=== PATIENT | female | born 1950 | race Caucasian/White ===

== ENCOUNTER 2022-05-18 10:01 | Outpatient (CLI) | payer MEDICARE, OTHER, SELFPAY | END 2022-05-18 10:02 | disposition home or self-care (01) | LOC: FRMREF 10:03 | PROVIDERS: PCP Physician Assistant Medical; Visit Provider Physician Assistant Medical | DX: E11.65 Type 2 diabetes mellitus with hyperglycemia (principal); I10 Essential (primary) hypertension; N39.0 Urinary tract infection, site not specified; N89.8 Other specified noninflammatory disorders of vagina | CPT/HCPCS: 87086; 87186 ==

== ENCOUNTER 2022-08-05 16:32 | Outpatient (CLI) | payer MEDICARE, OTHER, SELFPAY | END 2022-08-05 16:33 | disposition home or self-care (01) | LOC: LKVREF 08-10 11:05 | PROVIDERS: PCP Physician Assistant Medical; Visit Provider Nurse Practitioner Family | DX: R39.9 Unspecified symptoms and signs involving the genitourinary system (principal); N39.0 Urinary tract infection, site not specified | CPT/HCPCS: 87086; 87186 ==

== ENCOUNTER 2022-09-07 08:58 | Outpatient (CLI) | payer MEDICARE, OTHER, SELFPAY ==
[2022-09-07 13:43] LABS: Chloride* 101 mmol/L (96-114)
[2022-09-07 13:44] LABS: Albumin* 3.7 g/dL (3.3-5.0); Sodium* 134 mmol/L (135-149)
[2022-09-07 13:47] LABS: Alanine Aminotransferase* 32 U/L (4-35); Alkaline Phosphatase* 209 U/L (40-150); Aspartate Amino Transferase* 26 U/L (12-35); Bilirubin Total* 0.3 mg/dL (0.1-1.5); Blood Urea Nitrogen* 23 mg/dL (7-30); Carbon Dioxide* 25 mmol/L (20-32); Cholesterol* 182 mg/dL (90-199); Creatinine* 0.9 mg/dL (0.5-1.5); Estimated Glomerular Filt Rate 69 ml/min; Total Protein* 6.5 g/dL (6.0-8.3); Triglycerides* 382 mg/dL (40-149)
[2022-09-07 13:48] LABS: Calcium* 9.7 mg/dL (8.4-10.6); HDL Cholesterol* 38 mg/dL (>=50); LDL Cholesterol Calculated 68 mg/dL (<100)
[2022-09-07 13:58] LABS: Glucose* 373 mg/dL (60-115)
[2022-09-07 14:37] LABS: Creatinine Urine 157.2 mg/dL
[2022-09-07 14:41] LABS: Microalbumin Creatinine Ratio 0 mg/g (0-30); Microalbumin Urine < 1 mg/dL
== END 2022-09-07 08:59 | disposition home or self-care (01) ==
PROVIDERS: PCP Physician Assistant Medical; Visit Provider Physician Assistant Medical
DX: E11.65 Type 2 diabetes mellitus with hyperglycemia (principal); E78.5 Hyperlipidemia, unspecified; I10 Essential (primary) hypertension; Z79.4 Long term (current) use of insulin
CPT/HCPCS: 80053; 80061; 82043; 82570; 84443

== ENCOUNTER 2022-09-23 09:29 | Outpatient (CLI) | payer MEDICARE, OTHER, SELFPAY ==
--- NOTE | 2022-09-23 09:37 | CRLHL7_ITS ---
For Patients: As a result of the Century Cures Act, medical imaging exams and procedure reports are released immediately into your electronic medical record. You may view this report before your referring provider. If you have questions, please contact your health care provider. BILATERAL DIGITAL SCREENING MAMMOGRAM WITH COMPUTER-AIDED DETECTION CLINICAL HISTORY: Routine screening exam. COMPARISON: 08/24/2017, 05/05/2011 TECHNIQUE: Digital mammogram in CC and MLO projections including computer-aided detection (CAD). BREAST COMPOSITION: There are scattered areas of fibroglandular density. FINDINGS: RIGHT Breast: No suspicious findings LEFT Breast: Focal asymmetric density within the lower outer quadrant 6 cm from the nipple. IMPRESSION: LEFT breast asymmetry/mass. RECOMMENDATIONS: Additional mammographic views of the LEFT breast including 3D spot-compression CC/MLO. LEFT breast ultrasound may also be required. BI-RADS Category 0: Incomplete: Need Additional Imaging Evaluation and/or Prior Mammograms for Comparison. The [facility] will contact the patient for follow-up. A lay language report of this examination will be provided to the patient. Dictated by Hilton Gomran MD @ 09/23/2022 12:31:02 PM PT/Dictated by: Hilton Gorman MD @ 09/23/2022 12:31:00 PM (Electronically Signed)
== END 2022-09-23 09:30 | disposition home or self-care (01) ==
LOC: MAMMO 09:31
PROVIDERS: PCP Physician Assistant Medical; Visit Provider Physician Assistant Medical
DX: Z12.31 Encounter for screening mammogram for malignant neoplasm of breast (principal); N63.20 Unspecified lump in the left breast, unspecified quadrant
CPT/HCPCS: 77067

== ENCOUNTER 2022-09-30 10:23 | Outpatient (CLI) | payer MEDICARE, OTHER, SELFPAY ==
--- NOTE | 2022-09-30 10:45 | CRLHL7_ITS ---
For Patients: As a result of the Cures Act, medical imaging exams and procedure reports are released immediately into your electronic medical record. You may view this report before your referring provider. If you have questions, please contact your health care provider. DIGITAL DIAGNOSTIC LEFT MAMMOGRAM USING TOMOSYNTHESIS AND COMPUTER-AIDED DETECTION LEFT BREAST ULTRASOUND CLINICAL HISTORY: LEFT breast mass/asymmetry. COMPARISON: 09/23/22. TECHNIQUE: Digital LEFT mammogram in two projections. Tomosynthesis and CAD utilized. Real-time ultrasound imaging of LEFT breast with imaging documentation. BREAST COMPOSITION: There are areas of scattered fibroglandular density. FINDINGS: 3D spot compression CC/MLO LEFT mammograms submitted. Decreased conspicuity of the previously noted asymmetry. No suspicious masses or architectural distortion. Targeted LEFT breast ultrasound performed in the lower outer quadrant 6 cm from the nipple. No suspicious masses or fluid collections noted. No evidence of malignancy. IMPRESSION: No evidence of malignancy. RECOMMENDATIONS: Routine screening mammography. Results and recommendations discussed with the patient. BI-RADS Category 2: Benign A lay language report of this examination will be provided to the patient. Dictated by Hilton Gorman MD @ 09/30/2022 11:38:43 AM jj/Dictated by: Hilotn Gorman MD @ 09/30/2022 11:38:00 AM (Electronically Signed)
--- NOTE | 2022-09-30 11:15 | CRLHL7_ITS ---
For Patients: As a result of the Cures Act, medical imaging exams and procedure reports are released immediately into your electronic medical record. You may view this report before your referring provider. If you have questions, please contact your health care provider. PLEASE SEE DIGITAL DIAGNOSTIC LEFT MAMMOGRAM PERFORMED SAME DAY CRL:[email or web address] [email or web address]/Dictated by: Hilton Gorman MD @ 09/30/2022 11:38:00 AM (Electronically Signed)
== END 2022-09-30 10:24 | disposition home or self-care (01) ==
LOC: MAMMO 10:24
PROVIDERS: PCP Physician Assistant Medical; Visit Provider Physician Assistant Medical
DX: N63.20 Unspecified lump in the left breast, unspecified quadrant (principal); R92.8 Other abnormal and inconclusive findings on diagnostic imaging of breast
CPT/HCPCS: 76642; 77065; G0279

== ENCOUNTER 2022-11-01 14:02 | Outpatient (CLI) | payer MEDICARE, OTHER, SELFPAY | END 2022-11-01 14:03 | disposition home or self-care (01) | LOC: FRMREF 14:03 | PROVIDERS: PCP Physician Assistant Medical; Visit Provider Dermatology | DX: G62.9 Polyneuropathy, unspecified (principal); R25.2 Cramp and spasm; R32 Unspecified urinary incontinence; E11.9 Type 2 diabetes mellitus without complications; Z79.631 Long term (current) use of antimetabolite agent; G89.4 Chronic pain syndrome | CPT/HCPCS: 80053 ==

== ENCOUNTER 2022-12-15 10:54 | Outpatient (CLI) | payer MEDICARE, OTHER, SELFPAY | END 2022-12-15 10:55 | disposition home or self-care (01) | PROVIDERS: PCP Physician Assistant Medical; Visit Provider Emergency Medicine | DX: E78.5 Hyperlipidemia, unspecified (principal); R30.0 Dysuria; E11.9 Type 2 diabetes mellitus without complications; E78.1 Pure hyperglyceridemia; I10 Essential (primary) hypertension | CPT/HCPCS: 80048; 80061; 80076; 82043; 82570; 87086; 87186 ==

== ENCOUNTER 2022-12-22 15:11 | Outpatient (CLI) | payer MEDICARE, OTHER, SELFPAY | END 2022-12-22 15:12 | disposition home or self-care (01) | LOC: LKVREF 15:12 | PROVIDERS: PCP Physician Assistant Medical; Visit Provider Emergency Medicine | DX: M79.10 Myalgia, unspecified site (principal) | CPT/HCPCS: 82550 ==

== ENCOUNTER 2023-04-04 15:33 | Outpatient (CLI) | payer MEDICARE, OTHER, SELFPAY | END 2023-04-04 15:34 | disposition home or self-care (01) | PROVIDERS: PCP Physician Assistant Medical; Visit Provider Emergency Medicine | DX: Z00.00 Encounter for general adult medical examination without abnormal findings (principal); I10 Essential (primary) hypertension; R30.0 Dysuria; E11.9 Type 2 diabetes mellitus without complications; E78.5 Hyperlipidemia, unspecified; M85.9 Disorder of bone density and structure, unspecified; R25.2 Cramp and spasm | CPT/HCPCS: 80053; 82043; 82570; 87086 ==

== ENCOUNTER 2023-04-05 09:35 | Outpatient (CLI) | payer MEDICARE, OTHER, SELFPAY | END 2023-04-05 09:36 | disposition home or self-care (01) | LOC: NFLDREF 04-06 08:24 | PROVIDERS: PCP Emergency Medicine; Referring Provider Physician Assistant Medical; Visit Provider Emergency Medicine | DX: E78.5 Hyperlipidemia, unspecified (principal) | CPT/HCPCS: 80061 ==

== ENCOUNTER 2023-04-18 14:43 | Outpatient (CLI) | payer MEDICARE, OTHER, SELFPAY | END 2023-04-18 14:44 | disposition home or self-care (01) | PROVIDERS: PCP Emergency Medicine; Visit Provider Emergency Medicine | DX: R74.8 Abnormal levels of other serum enzymes (principal); E78.5 Hyperlipidemia, unspecified; E11.9 Type 2 diabetes mellitus without complications | CPT/HCPCS: 82977; 84075 ==

== ENCOUNTER 2023-05-11 13:04 | Outpatient (CLI) | payer MEDICARE, OTHER, SELFPAY ==
--- NOTE | 2023-05-11 14:00 | CRLHL7_ITS ---
For Patients: As a result of the Century Cures Act, medical imaging exams and procedure reports are released immediately into your electronic medical record. You may view this report before your referring provider. If you have questions, please contact your health care provider. DXA BONE MINERAL DENSITY STUDY Current height (in): 65. Weight (lb): 224. Menopause age: 44. Ethnicity: White. 1. Have you had a previous hip or vertebral fracture? No. 2. Have you had any fractures during your adult life which did not result from significant trauma (e.g., auto accident)? No. 3. Did either of your parents have a hip fracture? Yes. 4. Do you smoke? No. 5. Have you ever taken Glucocorticoids? No. 6. Do you have rheumatoid arthritis? No. 7. Do you have secondary osteoporosis? No. 8. Do you drink 3 or more alcoholic drinks per day? No. 9. Are you being treated for osteoporosis? No. 10. Have you ever taken any of the following medications: Actonel, Evista, Fosamax, Miacalcin, Reclast, Boniva, Forteo, HRT (i.e. estrogen/hormone therapy), Protelos, Prolia, Vitamin D, Calcium, other ??? please specify. ANSWER: Yes, Vitamin D, Calcium. 11. Do you have any of the following medical conditions: Anorexia or bulimia, asthma or emphysema, end stage renal disease, hyperparathyroidism, any seizure disorders, cancer, inflammatory bowel diseases, hysterectomy, other ??? please specify. ANSWER: Yes, Inflammatory bowel diseases, Hysterectomy. 12. What was your maximum height (inches)? 66. 13. Do you perform weight bearing exercise regularly? No. 14. Do you regularly consume dairy products? Yes. 15. Do you drink caffeinated beverages? Yes. If female: 16. At what age did your period start? 14. 17. Are you premenopausal? No. 18. How many full term pregnancies have you had? 3. 19. Have you ever missed your period for more than 6 months in a row (not including or menopause)? No. TECHNIQUE: Bone mineral density study was performed using the [employer]. FINDINGS: The results of the study expressed as bone mineral density (BMD) are as follows: Lumbar spine L1 to L2: BMD: 1.263 g/cm2. T-score: 2.6. Z-score: 4.6. Neck Left: BMD: 0.641 g/cm2. T-score: -1.9 . Z-score: -0.0. Right: BMD: 0.645 g/cm2. T-score: -1.8 . Z-score: 0.0. Total Left: BMD: 0.872 g/cm2. T-score: -0.6 . Z-score: 1.0. Right: BMD: 0.816 g/cm2. T-score: -1.0 . Z-score: 0.5. IMPRESSION: Osteopenia. *Comparison exams done prior to 01/2020 were performed on different unit, [employer]. COMPARISON: Compared with scan of 09/23/2020, the bone mineral density has increased by 8.3 percent at the spine and increased by 5.9 percent at the hip. Hilton Gorman M.D. Diagnostic Radiologist [email or web address] FABRICE/[email or web address] JR/Dictated by: Hilton Gorman MD @ 05/12/2023 11:26:00 AM (Electronically Signed)
== END 2023-05-11 13:05 | disposition home or self-care (01) ==
LOC: RAD 13:06
PROVIDERS: PCP Emergency Medicine; Visit Provider Emergency Medicine
DX: M85.9 Disorder of bone density and structure, unspecified (principal); M85.88 Other specified disorders of bone density and structure, other site
CPT/HCPCS: 77080

== ENCOUNTER 2023-06-12 13:12 | Outpatient (CLI) | payer MEDICARE, OTHER, SELFPAY | END 2023-06-12 13:13 | disposition home or self-care (01) | LOC: NFLDREF 06-15 15:03 | PROVIDERS: PCP Emergency Medicine; Referring Provider Emergency Medicine; Visit Provider Family Medicine | DX: R39.89 Other symptoms and signs involving the genitourinary system (principal); J98.01 Acute bronchospasm | CPT/HCPCS: 87086; 87186 ==

== ENCOUNTER 2023-08-10 10:39 | Outpatient (CLI) | payer MEDICARE, OTHER, SELFPAY | END 2023-08-10 10:40 | disposition home or self-care (01) | LOC: NFLDREF 08-11 08:34 | PROVIDERS: PCP Emergency Medicine; Referring Provider Emergency Medicine; Visit Provider Emergency Medicine | DX: E78.5 Hyperlipidemia, unspecified (principal); E11.9 Type 2 diabetes mellitus without complications; E78.1 Pure hyperglyceridemia | CPT/HCPCS: 80061 ==

== ENCOUNTER 2023-09-19 13:54 | Outpatient (CLI) | payer MEDICARE, OTHER, SELFPAY | END 2023-09-19 13:55 | disposition home or self-care (01) | PROVIDERS: PCP Emergency Medicine; Visit Provider Emergency Medicine | DX: E11.9 Type 2 diabetes mellitus without complications (principal); I10 Essential (primary) hypertension; M85.80 Other specified disorders of bone density and structure, unspecified site | CPT/HCPCS: 80048; 82306 ==

== ENCOUNTER 2024-06-12 10:05 | Outpatient (CLI) | payer MEDICARE, OTHER, SELFPAY | END 2024-06-12 10:06 | disposition home or self-care (01) | LOC: LKVREF 10:06 | PROVIDERS: PCP Emergency Medicine; Visit Provider Emergency Medicine | DX: E78.5 Hyperlipidemia, unspecified (principal); E11.65 Type 2 diabetes mellitus with hyperglycemia; Z79.4 Long term (current) use of insulin | CPT/HCPCS: 82043; 82570 ==

== ENCOUNTER 2024-08-08 13:23 | Outpatient (CLI) | payer MEDICARE, OTHER, SELFPAY | END 2024-08-08 13:24 | disposition home or self-care (01) | PROVIDERS: PCP Emergency Medicine; Visit Provider Emergency Medicine | DX: E78.5 Hyperlipidemia, unspecified (principal); I10 Essential (primary) hypertension; M85.80 Other specified disorders of bone density and structure, unspecified site; G62.9 Polyneuropathy, unspecified | CPT/HCPCS: 80048; 80061; 82306; 82607 ==

== ENCOUNTER 2024-09-09 10:56 | Outpatient (CLI) | payer MEDICARE, OTHER, SELFPAY | END 2024-09-09 10:57 | disposition home or self-care (01) | LOC: NFLDREF 09-11 02:03 | PROVIDERS: PCP Emergency Medicine; Referring Provider Emergency Medicine; Visit Provider Physician Assistant | DX: N89.8 Other specified noninflammatory disorders of vagina (principal); N76.4 Abscess of vulva | CPT/HCPCS: 87086 ==

== ENCOUNTER 2024-11-06 08:58 | Outpatient (CLI) | payer MEDICARE, OTHER, SELFPAY ==
--- NOTE | 2024-11-06 09:45 | CRLHL7_ITS ---
For Patients: As a result of the Century Cures Act, medical imaging exams and procedure reports are released immediately into your electronic medical record. You may view this report before your referring provider. If you have questions, please contact your health care provider. BILATERAL SCREENING MAMMOGRAM WITH COMPUTER-AIDED DETECTION AND TOMOSYNTHESIS TECHNIQUE: CC and MLO views were obtained. These mammographic images have been obtained using full-field digital technique. These mammographic images were interpreted with the benefit of computer-aided detection. Breast Tomosynthesis was used in this interpretation. COMPARISON FILM: 09/30/22, 09/23/22, 08/24/17. FINDINGS: There are scattered areas of fibroglandular density. IMPRESSION: There is no radiographic evidence for malignancy. ASSESSMENT: BI-RADS Category 1: Negative RECOMMENDATION: Routine screening mammogram in 1 year. A lay language report of this examination will be provided to the patient. Hilton Gorman M.D. Diagnostic Radiologist [email or web address] SP/Dictated by: Hilton Gorman MD @ 11/06/2024 9:55:00 AM (Electronically Signed)
== END 2024-11-06 08:59 | disposition home or self-care (01) ==
LOC: MAMMO 08:59
PROVIDERS: PCP Emergency Medicine; Visit Provider Emergency Medicine
DX: Z12.31 Encounter for screening mammogram for malignant neoplasm of breast (principal)
CPT/HCPCS: 77063; 77067

== ENCOUNTER 2024-12-24 10:55 | Outpatient (CLI) | payer MEDICARE, OTHER, SELFPAY | END 2024-12-24 10:56 | disposition home or self-care (01) | LOC: NFLDREF 12-29 06:48 | PROVIDERS: PCP Emergency Medicine; Referring Provider Emergency Medicine; Visit Provider Emergency Medicine | DX: E78.5 Hyperlipidemia, unspecified (principal) | CPT/HCPCS: 80061 ==

== ENCOUNTER 2025-05-13 14:25 | Outpatient (CLI) | payer MEDICARE, OTHER, SELFPAY | END 2025-05-13 14:26 | disposition home or self-care (01) | LOC: NFLDREF 05-19 02:10 | PROVIDERS: PCP Physician Assistant Medical; Referring Provider Physician Assistant Medical | DX: N30.01 Acute cystitis with hematuria (principal) | CPT/HCPCS: 87086 ==

== ENCOUNTER 2025-06-18 10:56 | Outpatient (CLI) | payer MEDICARE, OTHER, SELFPAY | END 2025-06-18 10:57 | disposition home or self-care (01) | PROVIDERS: PCP Physician Assistant Medical; Visit Provider Physician Assistant Medical | DX: E11.65 Type 2 diabetes mellitus with hyperglycemia (principal); E78.5 Hyperlipidemia, unspecified; R68.89 Other general symptoms and signs; Z79.4 Long term (current) use of insulin | CPT/HCPCS: 80053; 80061; 82043; 82570; 82607; 84443; 87086 ==

== ENCOUNTER 2025-07-18 13:53 | Outpatient (CLI) | payer MEDICARE, OTHER, SELFPAY | END 2025-07-18 13:54 | disposition home or self-care (01) | LOC: WOUND 13:58 | PROVIDERS: PCP Physician Assistant Medical; Visit Provider Physician Assistant Surgical | DX: E11.621 Type 2 diabetes mellitus with foot ulcer (principal); G62.9 Polyneuropathy, unspecified; L97.521 Non-pressure chronic ulcer of other part of left foot limited to breakdown of skin; L97.511 Non-pressure chronic ulcer of other part of right foot limited to breakdown of skin; Z79.4 Long term (current) use of insulin; E66.9 Obesity, unspecified; Z68.34 Body mass index [BMI] 34.0-34.9, adult | CPT/HCPCS: 11042; G0463 ==

== ENCOUNTER 2025-07-24 12:40 | Outpatient (CLI) | payer MEDICARE, OTHER, SELFPAY ==
--- NOTE | 2025-07-24 13:00 | CRLHL7_ITS ---
For Patients: As a result of the Century Cures Act, medical imaging exams and procedure reports are released immediately into your electronic medical record. You may view this report before your referring provider. If you have questions, please contact your health care provider. XR DXA BONE MINERAL DENSITY (BMD) Current height (in): 65.0. Weight (lb): 215.0. Menopause age: 44. Ethnicity: White. Reason for exam: Screening. 1. Have you had a previous hip or vertebral fracture? No. 2. Have you had any fractures during your adult life which did not result from significant trauma (e.g., auto accident)? No. 3. Did either of your parents have a hip fracture? Yes. 4. Do you smoke? No. 5. Have you ever taken Glucocorticoids? Yes. 6. Do you have rheumatoid arthritis? No. 7. Do you have secondary osteoporosis? No. 8. Do you drink 3 or more alcoholic drinks per day? No. 9. Are you being treated for osteoporosis? No. 10. Have you ever taken any of the following medications: Actonel, Evista, Fosamax, Miacalcin, Reclast, Boniva, Forteo, HRT (i.e. estrogen/hormone therapy), Protelos, Prolia, Vitamin D, Calcium, other ??? please specify. ANSWER: Yes, vitamin D, calcium. 11. Do you have any of the following medical conditions: Anorexia or bulimia, asthma or emphysema, end stage renal disease, hyperparathyroidism, any seizure disorders, cancer, inflammatory bowel diseases, hysterectomy, other ??? please specify. ANSWER: Yes, hysterectomy. 12. What was your maximum height (inches)? 66. 13. Do you perform weight bearing exercise regularly? No. 14. Do you regularly consume dairy products? Yes. 15. Do you drink caffeinated beverages? Yes. 16. At what age did your period start? 14. 17. Are you premenopausal? No. 18. How many full-term pregnancies have you had? 3. 19. Have you ever missed your period for more than 6 months in a row (not including or menopause)? No. TECHNIQUE: Bone mineral density study was performed using the [employer]. FINDINGS: The results of the study expressed as bone mineral density (BMD) are as follows: Lumbar spine L1 to L2: BMD: 1.209 g/cm2. T-score: 2.1. Z-score: 4.3 Neck Left: BMD: 0.705 g/cm2. T-score: -1.3. Z-score: 0.7 Right: BMD: 0.645 g/cm2. T-score: -1.8. Z-score: 0.1 Total Left: BMD: 0.837 g/cm2. T-score: -0.9. Z-score: 0.8 Right: BMD: 0.850 g/cm2. T-score: -0.8. Z-score: 0.9 IMPRESSION: Osteopenia. *Comparison exams done prior to 01/2020 were performed on different unit, [employer]. COMPARISON: Compared with scan of 05/11/2023, the bone mineral density has decreased by 4.3 percent at the spine and decreased by 0.1 percent at the hip. FRAX 10-year Fracture Risk Major Osteoporotic Fracture: 27 percent Hip Fracture: 13 percent Reported Risk Factors: [place] () Neck BMD = 0.645, BMI = 35.8 Dwayne Mazariegos PA-C [email or web address] Transcribed: 3:45 pm DW/Dictated by: Hilton Gorman MD @ 07/24/2025 3:32:00 PM (Electronically Signed)
== END 2025-07-24 12:41 | disposition home or self-care (01) ==
LOC: RAD 12:41
PROVIDERS: PCP Physician Assistant Medical; Visit Provider Physician Assistant Medical
DX: Z13.820 Encounter for screening for osteoporosis (principal); M85.89 Other specified disorders of bone density and structure, multiple sites
CPT/HCPCS: 77080

== ENCOUNTER 2025-07-25 11:15 | Outpatient (CLI) | payer MEDICARE, OTHER, SELFPAY | END 2025-07-25 11:16 | disposition home or self-care (01) | LOC: WOUND 11:15 | PROVIDERS: PCP Physician Assistant Medical; Visit Provider Nurse Practitioner Family | DX: S90.411A Abrasion, right great toe, initial encounter (principal); S90.412A Abrasion, left great toe, initial encounter; E11.42 Type 2 diabetes mellitus with diabetic polyneuropathy; E66.9 Obesity, unspecified; Z68.34 Body mass index [BMI] 34.0-34.9, adult; Z79.4 Long term (current) use of insulin | CPT/HCPCS: G0463 ==